=== PATIENT | female | born 1955 | race Caucasian/White ===

== ENCOUNTER 2017-12-15 12:32 | Emergency (ER) | END 2017-12-15 16:10 | disposition home or self-care (01) ==

== ENCOUNTER 2018-08-01 03:28 | Emergency (ER) | payer OTHER ==
[~2018-08-01] VITALS: Ht 162.6 cm; Wt 65.1 kg
[~2018-08-01 03:28] MED LIST: CLIN300C10 PO; IBUP-1561 PO; PRED20TA PO
[2018-08-01 03:33] VITALS: Ht 162.6 cm; Wt 65.1 kg
--- NOTE | 2018-08-01 03:58 | ERD ---
ER Documentation Chief Complaint Chief Complaint PT C/O R SIDED TOOTH ABSCESS WITH THROBBING PAIN.SWELLING NOTED HPI This is a 62-year-old female who presents to emerge department with complaints of right upper toothache for about 5 days. Stated that it got better previously and got worse again today. She also complains of nasal congestion and cough. LMP: Denies headache, head injury, loss of consciousness, dizziness, neck pain, neck stiffness, throat pain, difficulty swallowing, difficulty breathing lying flat, shoulder pain, chest pain, back pain, abdominal pain, nausea, vomiting, constipation, diarrhea, urinary symptoms, or possibility being , loss of bowel and bladder control, trauma, injury, falls, difficulty walking due to pain, numbness or tingling sensation, calf pain, recent travel, r ecent major surgery in the last 3 weeks, calf pain, recent long travel, recent exposure to any illness, recent antibiotic use in the last 3 months, fever, chills, seizures. Past medical history: Surgical history: Social: Denies smoking, use of alcoholic beverages, use of illegal drugs. ROS All systems reviewed and are negative except as per history of present illness. Medications Home Meds Active Scripts Ibuprofen* (Motrin*) 600 Mg Tab, 600 MG PO Q6H PRN for PAIN AND OR ELEVATED TEMP, #20 TAB Prov:SOLANGE THOMAS 08/01/18 Amoxicillin/Potassium Clav (Amox-Clav 875-125 mg Tablet) 875-125 mg Tab, 1 TAB PO BID for 10 Days, #20 TAB Prov:GENASOLANGE SCHULTE F 08/01/18 Ibuprofen* (Motrin*) 400 Mg Tab, 400 MG PO Q8 for 5 Days, #15 TAB Prov:GIL CONDE MD 12/15/17 Prednisone* (Prednisone*) 20 Mg Tab, 40 MG PO DAILY for 4 Days, TAB Prov:GIL CONDE MD 12/15/17 Clindamycin Hcl* (Clindamycin Hcl*) 300 Mg Capsule, 300 MG PO TID for 10 Days, CAP Prov:GIL CONDE MD 12/15/17 Allergies Allergies: Coded Allergies: Tetracyclines (Verified Allergy, Mild, RASHES, 12/15/17) PMhx/Soc Hx Alcohol Use: No Hx Substance Use: No Hx Tobacco Use: No Physical Exam Vitals Vital Signs Date Temp Pulse Resp B/P (MAP) Pulse Ox O2 O2 Flow FiO2 Time Delivery Rate 08/01/18 99.0 88 16 122/78 98 03:33 (93) Physical Exam Const: No acute distress Head: Atraumatic Eyes: Normal Conjunctiva ENT: Normal External Ears, Nose and Mouth. Throat: Right upper second molar has a swelling to the gum area. There is frontal and maxillary sinus tenderness to palpation. Neck: Full range of motion. No meningismus. Resp: Clear to auscultation bilaterally Cardio: Regular rate and rhythm, no murmurs Abd: Soft, non tender, non distended. Normal bowel sounds Skin: No petechiae or rashes Back: No midline or flank tenderness Ext: No cyanosis, or edema Neur: Awake and alert Psych: Normal Mood and Affect Results 24 hrs Current Medications Medications Dose Sig/[place] Start Time Status Last (Trade) Ordered Route PRN Stop Time Admin Dose Reason Admin 1 tab ONCE ONCE 08/01/18 DC 08/01/18 Acetaminophen PO 04:00 04:04 / 08/01/18 04:01 Hydrocodone Bitart ([place] (10/325)) Procedures/MDM Diagnostic tests: Clinical exam. Treatment: [place] p.o. Re-evaluation: Denies pain. Differential diagnosis I have low suspicion for sepsis, meningitis, periorbital cellulitis, peritonsillar abscess, mastoiditis, angioedema. Final diagnosis: Sinusitis. Gum abscess. Prescription: Augmentin. Motrin. Follow-up with PCP in the next 24-48 hours. Follow-up with your dentist in the next 24-48 hours. Come back here in the emergency department for any new symptoms or any worsening symptoms. All questions and concerns were answered. Patient and family members verbalized understanding and agreed with plan of care. Hemodynamically stable on discharge. Departure Diagnosis: Primary Impression: Sinusitis Additional Impression: Tooth abscess Condition: Stable Additional Instructions: Follow-up with PCP in the next 24-48 hours. Follow-up with your dentist in the next 24-48 hours. Come back here in the emergency department for any new symptoms or any worsening symptoms. SOLANGE THOMAS Aug 01, 2018 03:58
[2018-08-01] MEDS ORDERED: HYDROCODONE/APAP (10/325) TAB PO ONE (04:00)
[2018-08-01] MEDS ORDERED: IBUP-1542 PO (04:00)
[2018-08-01] MEDS ORDERED: AMOX1TAB10 PO (04:00)
== END 2018-08-01 04:10 | disposition home or self-care (01) ==
LOC: FTE 03:28
DX: K04.6 Periapical abscess with sinus (principal)
CPT/HCPCS: Z7502; Z7610; 99283